=== PATIENT | male | born 1960 | race Caucasian/White ===

== ENCOUNTER 2021-01-16 09:33 | Emergency (ER) | payer BC ==
[~2021-01-16] VITALS: Ht 172.7 cm; Wt 92.0 kg
[2021-01-16 09:58] LABS: BASO # 0.1 x10^3/uL (0.0-0.2); BASO % 1 % (0-3); EOS # 0.1 x10^3/uL (0.0-0.7); EOS % 2 % (0-3); HEMATOCRIT 37.2 % (39.0-53.0); LYMPH # 1.9 x10^3/uL (1.0-4.8); LYMPH % 31 % (24-48); MEAN CORPUSCULAR HEMOGLOBIN 26 pg (25-35); MEAN CORPUSCULAR HGB CONC 32 g/dL (31-37); MEAN CORPUSCULAR VOLUME 81 fL (79-100); MONO # 0.6 x10^3/uL (0.0-1.1); MONO % 9 % (0-9); NEUT # 3.5 x10^3/uL (1.8-7.7); NEUT % 57 % (31-73); PLATELET COUNT 236 x10^3/uL (140-400); RED CELL DISTRIBUTION WIDTH 16.8 % (11.5-14.5)
[2021-01-16 10:20] LABS: CREATININE 1.2 mg/dL (0.7-1.3); GFR 61.6
--- NOTE | 2021-01-16 10:51 | ED.ADGEN ---
Past Medical History Past Medical History: Other Additional Past Medical Histor: Prediabetes, Past Surgical History: Other Additional Past Surgical Histo: LT HAND Smoking Status: Never Smoker Alcohol Use: None General Adult EDM: Chief Complaint: NEURO SYMPTOMS/DEFICITS HPI: HPI: Patient is a 60-year-old male with past medical history of hypertension who presents to the emergency room complaining of right-sided facial weakness. Patient states that he was in the middle of a Zoom call when he tried to take a drink and the water came back out of his mouth. He went to look in the mirror and realized that he could not close his right eye and could not smile on the right side. 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 He states that over the last couple of days he has had this achy pain on the right side of his neck and right posterior head. He states that it is been minor and he has not tried anything to help it. He denies any sensation c hanges. He is not having any difficulty using his arms or legs. He has no difficulty with gait. He denies any dizziness. He denies any chest pain or shortness of breath. Review of Systems: Review of Systems: Complete ROS is negative unless otherwise documented in HPI Physical Exam: PE: General: Awake, alert, NAD. Well Nourished, well hydrated. Cooperative HEENT: Atraumatic, EOMI, PERRL, airway patent, moist oral mucosa Neck: Supple, trachea midline Respiratory: CTA bilaterally, normal effort, no wheezing/crackles CV: RRR, no murmur, cap refill <2 GI: Soft, nondistended, nontender, no masses MSK: No obvious deformities Skin: Warm, dry, intact Neuro: A&O x3, speech NL, 5/5 strength in BUE/BLE distally and proximally, cere bellar testing normal Cranial nerves: R sided facial weakness: unable to fully close right eye or smile. Decreased movement in forehead, CN II-, VII-XII Psych: Normal affect, normal mood, not suicidal or homicidal Current Patient Data: Labs: Laboratory Tests Test 01/16/21 09:46 01/16/21 09:47 Glucose (Fingerstick) 176 mg/dL (70-99) H White Blood Count 6.0 x10^3/uL (4.0-11.0) Red Blood Count 4.60 x10^6/uL (4.30-5.70) Hemoglobin 12.0 g/dL (13.0-17.5) L Hematocrit 37.2 % (39.0-53.0) L Mean Corpuscular Volume 81 fL (79-100) Mean Corpuscular Hemoglobin 26 pg (25-35) Mean Corpuscular Hemoglobin Concent 32 g/dL (31-37) Red Cell Distribution Width 16.8 % (11.5-14.5) H Platelet Count 236 x10^3/uL (140-400) Neutrophils (%) (Auto) 57 % (31-73) Lymphocytes (%) (Auto) 31 % (24-48) Monocytes (%) (Auto) 9 % (0-9) Eosinophils (%) (Auto) 2 % (0-3) Basophils (%) (Auto) 1 % (0-3) Neutrophils # (Auto) 3.5 x10^3/uL (1.8-7.7) Lymphocytes # (Auto) 1.9 x10^3/uL (1.0-4.8) Monocytes # (Auto) 0.6 x10^3/uL (0.0-1.1) Eosinophils # (Auto) 0.1 x10^3/uL (0.0-0.7) Basophils # (Auto) 0.1 x10^3/uL (0.0-0.2) Sodium Level 138 mmol/L (136-145) Potassium Level 4.0 mmol/L (3.5-5.1) Chloride Level 107 mmol/L (98-107) Carbon Dioxide Level 23 mmol/L (21-32) Anion Gap 8 (6-14) Blood Urea Nitrogen 17 mg/dL (8-26) Creatinine 1.2 mg/dL (0.7-1.3) Estimated GFR (Cockcroft-Gault) 61.6 Glucose Level 170 mg/dL (70-99) H Calcium Level 9.0 mg/dL (8.5-10.1) Laboratory Tests 01/16/21 09:47 Laboratory Tests 01/16/21 09:47 Vital Signs: Vital Signs Date Time Temp Pulse Resp B/P (MAP) Pulse Ox O2 Delivery O2 Flow Rate FiO2 01/16/21 09:35 97.0 67 24 204/99 (134) 96 Room Air 97.0 EKG: EKG: [] Heart Score: C/O Chest Pain: N/A Risk Factors: Risk Factors: DM, Current or recent (<one month) smoker, HTN, HLP, family history of CAD, obesity. Risk Scores: Score 0 - 3: 2.5% MACE over next 6 weeks - Discharge Home Score 4 - 6: 20.3% MACE over next 6 weeks - Admit for Clinical Observation Score 7 - 10: 72.7% MACE over next 6 weeks - Early Invasive Strategies Radiology/Procedures: Radiology/Procedures: [] Course & Med Decision Making: Course & Med Decision Making Pertinent Labs and Imaging studies reviewed. (See chart for details) Patient is a 60 year old male who presents to the Emergency Room complaining of 1 hour of right-sided facial weakness. Patient noticed that he could not move his upper or lower face. He has been having some neck and posterior head pain for the last couple of days. Patient appears to have Galicia's palsy. Due to the pain will do a CT head and C-spine to rule out any kind of mass or erosion that could cause Galicia's palsy. Patient does not have any signs of a central neurologic condition. He is overall well-appearing. He has had Galicia's palsy previously. CT is unremarkable. Will place the patient on prednisone and valacyclovir. Patient's test results and vitals while in the ED were fully reviewed and discussed with the patient. Patient is stable and at this time does not need admission to the hospital. We have discussed strict return precautions and the importance of following up with their Primary Care Physician. Patient stated understanding and was given an opportunity to ask any questions. Patient is in agreement with plan. Ada Disclaimer: Ada Disclaimer: This electronic medical record was generated, in whole or in part, using a voice recognition dictation system. Departure Departure Impression: Primary Impression: Galicia's palsy Disposition: 01 DC HOME SELF CARE/HOMELESS Condition: STABLE Referrals: JOAO FREITAS NP (PCP) GUILLAUME GUZMAN MD Patient Instructions: Galicia's Palsy Scripts Valacyclovir Hcl (VALACYCLOVIR) 1,000 Mg Tablet 1 TAB PO TID, #21 TAB Prov: KAITY ROBISON MD 01/16/21 Prednisone (PREDNISONE) 50 Mg Tablet 1 TAB PO DAILY, #5 TAB Prov: KAITY ROBISON MD 01/16/21 KAITY ROBISON MD Jan 16, 2021 10:50
--- NOTE | 2021-01-16 11:54 | RAD ---
EXAM: CT Head without IV contrast INDICATION: Reason: jackman's palsy facal droop neck pain / Spl. Instructions: / History: TECHNIQUE: Multi-detector row CT images were obtained of the head without the use of IV contrast. All CT scans performed at this facility utilize dose optimization techniques as appropriate to the exam, including the following: Automated exposure control and adjustment of the mA and/or KV according to patient size (this includes techniques or standardized protocols for targeted exams where dose is ind ication/reason for exam). COMPARISON: None FINDINGS: BRAIN PARENCHYMA: No evidence of acute intraparenchymal hemorrhage or infarct. No abnormal parenchyma l density or mass. VENTRICLES & EXTRA-AXIAL SPACES: Ventricles are within normal limits. Basilar cisterns are patent. N o pathologic extra-axial fluid collection or mass. ORBITS: Orbital contents are unremarkable. SINUSES: Visualized paranasal sinuses and mastoid air cells are clear. OSSEOUS & SOFT TISSUES: Calvarium and skull base are intact. IMPRESSION: Normal CT of the head without contrast. EXAM: CT Cervical Spine without IV contrast INDICATION: Reason: jackman's palsy facal droop neck pain / Spl. Instructions: / History: TECHNIQUE: Multi-detector row CT images were obtained through the cervical spine without the use of IV contrast. Post-processing sagittal and coronal reconstructed images were obtained for interpretati on. All CT scans performed at this facility utilize dose optimization techniques as appropriate to th e exam, including the following: Automated exposure control and adjustment of the mA and/or KV accord ing to patient size (this includes techniques or standardized protocols for targeted exams where dose is indication/reason for exam). COMPARISON: None FINDINGS: CRANIOCERVICAL JUNCTION: Unremarkable. ALIGNMENT: Alignment is within normal limits. OSSEOUS: No evidence of fracture or bone destruction. DISC SPACES: Unremarkable. FACET JOINTS: Mild facet degenerative changes, most conspicuous at C5-C6. SPINAL CANAL: Unremarkable. NEUROFORAMINA: Unremarkable. SOFT TISSUES: Unremarkable. IMPRESSION: C-spine facet degenerative changes. Otherwise unremarkable CT C-spine without IV contrast. Electronically signed by: Kayce De Guzman MD (01/16/2021 11:51 AM) [id number]
[2021-01-16] MEDS ORDERED: PRED50TA PO (12:05)
[2021-01-16] MEDS ORDERED: VALA10008 PO (12:05)
[2021-01-16 12:11] VITALS: BP 161/92
== END 2021-01-16 12:21 | disposition home or self-care (01) ==
LOC: ER 09:33
DX: G51.0 Bell's palsy (principal); R53.1 Weakness; I10 Essential (primary) hypertension; Z98.890 Other specified postprocedural states
CPT/HCPCS: 36415; 70450; 72125; 80048; 82962; 85025; 99285

== ENCOUNTER → 2021-02-12 | Outpatient (CLI) | payer BC ==
[2021-01-16 12:11] VITALS: BP 161/92
[~2021-02-12] MED LIST: PRED50TA PO; VALA10008 PO
--- NOTE | 2021-02-12 11:36 | KCIC ---
MRI of the brain without contrast 02/12/2021 Clinical History: Right-sided facial weakness for 3 weeks.. Technique: Unenhanced T1-weighted sagittal and axial, T2-weighted axial and coronal and FLAIR, gradie nt echo and diffusion-weighted axial images of the brain were obtained. Findings: Comparison is made to patient's CT scan of the head dated 01/16/2021. There is generalized parenchymal atrophy. Patchy and several small scattered areas of increased signa l intensity are seen within the periventricular and subcortical white matter of both cerebral hemisph eres on the FLAIR and T2-weighted images consistent with areas of relatively mild small vessel ischem ic disease. No acute parenchymal abnormality is seen. No extra-axial fluid collection is noted. There is no MRI e vidence of acute ischemia/infarction. The IACs are within normal limits. Mild mucosal thickening is seen scattered throughout the paranasal sinuses. Normal flow voids are see n within the major vascular structures surrounding the brain parenchyma. IMPRESSION: No acute parenchymal abnormality is seen. Electronically signed by: Tyler Koroma MD (02/12/2021 11:34 AM) [id number]
== END ==
LOC: KCIC MRI 09:03
PROVIDERS: ATTEND Nurse Practitioner Family
DX: G51.0 Bell's palsy (principal)
CPT/HCPCS: 70551